=== PATIENT | female | born 1980 | race Caucasian/White ===

== ENCOUNTER 2016-09-26 17:10 | Emergency (ER) | payer MEDICAID ==
[~2016-09-26] VITALS: Ht 160 cm; Wt 71.7 kg
[2016-09-26 17:45] VITALS: BP 112/51
--- NOTE | 2016-09-26 18:46 | NUR ---
PT AMBULATED TO BED 6
--- NOTE | 2016-09-26 18:50 | NUR ---
PATIENT PRESENTS TO ED WITH NAUSEA AND VOMITING X2 DAYS . PT STATES CONTINUES WITH FLANK PAIN/FEVER BUT NOW INCREASED N/V; SKIN IS PINK/WARM/DRY; AAOX4 WITH EVEN AND STEADY GAIT; LUNGS CLEAR BL; HR EVEN AND REGULAR; PT DENIES ANY CP, SOB, OR COUGH AT THIS TIME; PATIENT STATES PAIN OF 10/10 AT THIS TIME TO SUGAR FLANKS AND LOWER BACK; VSS; PATIENT POSITIONED FOR COMFORT; HOB ELEVATED; BEDRAILS UP X2; BED DOWN. ER MD MADE AWARE OF PT STATUS.
--- NOTE | 2016-09-26 19:10 | NUR ---
Pt report given to MICHAEL IRELAND. Transfer of care at this time.
--- NOTE | 2016-09-26 19:15 | NUR ---
REPORT RECIEVED FROM MICHAEL HURTADO
--- NOTE | 2016-09-26 19:35 | NUR ---
PT STATES SHE WENT TO [facility] LAST FRIDAY AND WAS DIAGNOSED WITH UTI AND NOW PRESENT WITH NAUSEA AND AND PAIN. PT HAS RX FROM TRAMADOL AND MACROBID BUT FEELS NAUSEATED WHEN SHE TAKES MEDS. PAIN 04/15
[2016-09-26] MEDS ORDERED: MORPHINE SULFATE 4 MG/ML SYR IVP ONE (20:25)
[2016-09-26] MEDS ORDERED: NACL 0.9% 1,000 ML IV ONE (20:25)
[2016-09-26] MEDS ORDERED: ONDANSETRON 4 MG/2 ML VIAL IVP ONE (20:25)
[2016-09-26] MEDS ORDERED: cefTRIAXone 1,000 MG VIAL ONE (20:38)
[2016-09-26 22:05] VITALS: BP 105/60
--- NOTE | 2016-09-26 22:07 | NUR ---
Patient discharged with v/s stable. Written and verbal after care instructions given and explained. Patient alert, oriented and verbalized understanding of instructions. Ambulatory with steady gait. All questions addressed prior to discharge. ID band removed. Patient advised to follow up with PMD. Rx of zofran, ciproflaxin and norco given. Patient educated on indication of medication including possible reaction and side effects. Opportunity to ask questions provided and answered.
== END 2016-09-26 22:05 | disposition home or self-care (01) ==
LOC: MED 17:10
DX: N12 Tubulo-interstitial nephritis, not specified as acute or chronic (principal)
CPT/HCPCS: 36415; 80053; 81001; 81025; 82150; 83605; 83690; 84703; 85025; 87040; 87086; 96365; 96375; 99284; J0696; J2270; J2405; J7030; J7060